=== PATIENT | male | born 1975 | race Hispanic/Latino ===

== ENCOUNTER 2022-08-29 17:45 | Emergency (ER) | payer MEDICAID ==
[~2022-08-29] VITALS: Ht 177.8 cm; Wt 85.7 kg
[2022-08-29 18:13] LABS: BASOPHILS % (AUTO) 0.6 % (0.0-5.0); EOSINOPHILS % (AUTO) 0.6 % (0.0-8.0); HEMATOCRIT 55.8 % (42-54); LYMPHOCYTES % (AUTO) 23.1 % (21.0-51.0); MEAN CORPUSCULAR HEMOGLOBIN 31.8 pg (27.0-33.0); MEAN CORPUSCULAR HGB CONC 34.8 g/dL (32.0-36.0); MEAN CORPUSCULAR VOLUME 91.5 fL (79-99); MONOCYTES % (AUTO) 7.8 % (3.0-13.0); NEUTROPHILS % (AUTO) 67.8 % (40.0-77.0); PLATELET COUNT (AUTO) 140 K/uL (130-400); RED CELL DISTRIBUTION WIDTH 12.2 % (11.0-15.5); WHITE BLOOD COUNT (AUTO) 6.8 K/uL (4.8-10.8)
[2022-08-29 18:42] LABS: ALBUMIN 3.9 g/dL (3.5-5.0); CREATININE 0.9 mg/dL (0.5-1.5); MAGNESIUM 1.7 mg/dL (1.80-2.40); POTASSIUM 3.8 mmol/L (3.5-5.1); TOTAL PROTEIN, SERUM 7.2 g/dL (6.0-8.3)
[2022-08-29] MEDS ORDERED: 0.9%NACL 1000ML 2,000 ML IV SCH (20:30)
[2022-08-29] MEDS ORDERED: IOHEXOL 350 MG/ML 100ML INFUS..BTL IV ONE (20:35)
[2022-08-29 20:47] LABS: ABG BASE EXCESS 0.2 mmol/L (-2.0-3.0); ABG HCO3 24.9 mmol/L (21.0-28.0); ABG OXYGEN SATURATION 96.5 % (95.0-99.0); ABG PCO2 41 mmHg (35-48)
[2022-08-29] MEDS ORDERED: ASPI-1005 PO (21:28)
[2022-08-29 22:01] VITALS: BP 136/72
== END 2022-08-29 22:27 | disposition home or self-care (01) ==
LOC: EDH 17:45
DX: D45 Polycythemia vera (principal); E10.8 Type 1 diabetes mellitus with unspecified complications; I10 Essential (primary) hypertension; Z90.411 Acquired partial absence of pancreas
CPT/HCPCS: 99285; 71270; 96360; 82550; 83615; 83735; 84484; 80053; 82803; 85025; 82668; 36415; 74177; 93005; 36600; J7030; Q9967

== ENCOUNTER 2023-10-26 06:44 | Emergency (ER) | payer MEDICAID ==
[~2023-10-26] VITALS: Ht 177.8 cm; Wt 82.1 kg
[~2023-10-26 06:44] MED LIST: ASPI-1005 PO
[2023-10-26] MEDS: ALPRAZolam 0.5 MG TABLET PO ONE (07:45)
[2023-10-26] MEDS: amLODIPine 5 MG TAB PO ONE (07:45)
[2023-10-26 07:53] LABS: BASOPHILS # (AUTO) 0.03 K/uL (0.00-0.20); BASOPHILS % (AUTO) 0.6 % (0.0-5.0); EOSINOPHILS # (AUTO) 0.06 K/uL (0.00-0.70); EOSINOPHILS % (AUTO) 1.3 % (0.0-8.0); HEMATOCRIT 47.5 % (42-54); IMMATURE GRANULOCYTE ABSOLUTE 0.01 K/uL (0-1); LYMPHOCYTES # (AUTO) 1.3 K/uL (1.0-4.8); LYMPHOCYTES % (AUTO) 28.8 % (21.0-51.0); MEAN CORPUSCULAR HEMOGLOBIN 32.4 pg (27.0-33.0); MEAN CORPUSCULAR HGB CONC 35.4 g/dL (32.0-36.0); MEAN CORPUSCULAR VOLUME 91.5 fL (79-99); MONOCYTES # (AUTO) 0.3 K/uL (0.1-1.0); MONOCYTES % (AUTO) 6.7 % (3.0-13.0); NEUTROPHILS # (AUTO) 2.9 K/uL (1.8-7.7); NEUTROPHILS % (AUTO) 62.4 % (40.0-77.0); PLATELET COUNT (AUTO) 119 K/uL (130-400); RED BLOOD CELL COUNT(AUTO) 5.19 MIL/uL (4.50-6.20); WHITE BLOOD COUNT (AUTO) 4.7 K/uL (4.8-10.8)
[2023-10-26 08:08] LABS: CREATININE 0.9 mg/dL (0.5-1.3); POTASSIUM 3.9 mmol/L (3.5-5.1)
[2023-10-26] MEDS: INSULIN HUMULIN R 100 UNIT/ML 3ML SQ ONE (09:30)
[2023-10-26 10:47] VITALS: BP 148/86; PULSE 85; RESP 18; O2SAT 98
== END 2023-10-26 10:48 | disposition home or self-care (01) ==
LOC: EDH 06:44
DX: R51.9 Headache, unspecified (principal); F12.90 Cannabis use, unspecified, uncomplicated; F14.10 Cocaine abuse, uncomplicated; I16.0 Hypertensive urgency; D45 Polycythemia vera; E11.9 Type 2 diabetes mellitus without complications; Z79.82 Long term (current) use of aspirin; Z98.890 Other specified postprocedural states
CPT/HCPCS: 99285; 96374; 70450; 80048; 85025; 36415; J1815